=== PATIENT | female | born 1940 | race Caucasian/White ===

== ENCOUNTER 2022-06-21 18:44 | Emergency (ER) | payer MEDICARE, OTHER ==
[~2022-06-21] VITALS: Ht 149.9 cm; Wt 90.7 kg
--- NOTE | 2022-06-21 19:00 | NUR ---
AMORA RA78 From Home "Been coughing x1wk or so. NOT getting better". PLACED IN BED, AAOX4, ABLE TO AMBULATE WITH ASSISTANCE, BREATHING UNLABORED SATURATING AT 97%RA.
--- NOTE | 2022-06-21 19:34 | NUR ---
SWAB FOR COVID19, RAPID INFLUENZA AND RSV SENT TO LAB
[2022-06-21] MEDS ORDERED: methylPREDNISolone SOD SUCC 125 MG/2ML VIAL IV ONE (20:30)
[2022-06-21] MEDS ORDERED: IPRATROPIUM NEB FS 0.5 MG/2.5 ML AMPUL.NEB NEB ONE (20:30)
[2022-06-21] MEDS ORDERED: ALBUTEROL FS 2.5 MG/3 ML VIAL.NEB CONTNEB ONE (20:30)
[2022-06-21 20:45] LABS: BASOPHILS % (AUTO) 0.7 % (0.0-2.0); EOSINOPHILS % (AUTO) 7.7 % (0.0-6.0); HEMATOCRIT 40 % (33-45); LYMPHOCYTES # (AUTO) 2.3 K/uL (0.8-4.8); LYMPHOCYTES % (AUTO) 34.4 % (20.0-44.0); MEAN CORPUSCULAR HGB CONC 33 g/dl (31.0-36.0); MEAN CORPUSCULAR VOLUME 96 fL (82-100); MONOCYTES % (AUTO) 14.3 % (2.0-12.0); NEUTROPHILS # (AUTO) 2.9 K/uL (1.8-8.9); NEUTROPHILS % (AUTO) 42.9 % (43.0-81.0); PLATELET COUNT (AUTO) 272 K/uL (150-450); RED BLOOD CELL COUNT(AUTO) 4.16 MIL/uL (4.0-5.2); WHITE BLOOD COUNT (AUTO) 6.8 K/uL (4.3-11.0)
[2022-06-21 21:01] LABS: CALCIUM, SERUM 10.4 mg/dL (8.5-10.1); CARBON DIOXIDE 25 mmol/L (21-32); CHLORIDE 101 mmol/L (98-107); CREATININE 1.2 mg/dL (0.6-1.3); GLUCOSE 109 mg/dL (74-106); POTASSIUM 4.1 mmol/L (3.5-5.1); SODIUM SERUM 133 mmol/L (136-145); UREA NITROGEN, BLOOD 26 mg/dL (7-18)
[2022-06-21 21:12] LABS: ALANINE AMINOTRANSFERASE 22 U/L (12-78); ALBUMIN 3.5 g/dL (3.4-5.0); ALKALINE PHOSPHATASE 108 U/L (46-116); ASPARTATE AMINOTRANSFERASE 25 U/L (15-37); BILIRUBIN,DIRECT 0.1 mg/dL (0.0-0.2); BILIRUBIN,TOTAL 0.3 mg/dL (0.2-1.0); TOTAL PROTEIN, SERUM 6.9 g/dL (6.4-8.2)
[2022-06-21] MEDS ORDERED: methylPREDNISolone SOD SUCC 125 MG/2ML VIAL ONE (21:17)
[2022-06-21] MEDS ORDERED: IPRATROPIUM NEB FS 0.5 MG/2.5 ML AMPUL.NEB ONE (21:32)
[2022-06-21] MEDS ORDERED: ALBUTEROL FS 2.5 MG/3 ML VIAL.NEB ONE (21:32)
[2022-06-21] MEDS ORDERED: BENZ-13 PO (21:53)
[2022-06-21] MEDS ORDERED: PRED20TA PO (21:53)
[2022-06-21] MEDS ORDERED: ALBU18HF2 INH (21:53)
--- NOTE | 2022-06-21 23:06 | NUR ---
IV removed. Catheter intact and site benign. Pressure and 4x4 applied to site. No bleeding noted.Patient discharged to home in stable condition. Written and verbal after care instructions given. Patient verbalizes understanding of instruction.
[2022-06-21 23:07] VITALS: BP 135/75
== END 2022-06-21 23:06 | disposition home or self-care (01) ==
LOC: ER 18:46
DX: J20.9 Acute bronchitis, unspecified (principal); Z20.822 Contact with and (suspected) exposure to COVID-19; R00.1 Bradycardia, unspecified; I10 Essential (primary) hypertension
CPT/HCPCS: 99285; 96374; 71045; 87426; 93005; 87804; 85025; 80048; 87040 ×2; 80076; 36415; 87420; 84484; 83880; 94644; J2930; C9803

== ENCOUNTER 2022-10-19 20:38 | Inpatient (IN) | payer MEDICARE, OTHER ==
[~2022-10-19] VITALS: Ht 149.9 cm; Wt 90.3 kg
[~2022-10-19 20:38] MED LIST: ALBU18HF2 INH; BENZ-13 PO; PRED20TA PO
[2022-10-19] MEDS ORDERED: ONDANSETRON HCL/PF 4 MG/2 ML VIAL IVP ONE (21:00)
[2022-10-19] MEDS ORDERED: IV NS 0.9% 1,000 ML BAG IV ONE (21:00)
[2022-10-19] MEDS ORDERED: ONDANSETRON HCL/PF 4 MG/2 ML VIAL ONE (21:04)
--- NOTE | 2022-10-19 21:05 | NUR ---
[id number] FROM LONGTERM, CC OF HEADACHE AND NAUSEA STARTED TODAY, DIARRHEA SINCE YESTERDAY.
[2022-10-19 21:45] LABS: BASOPHILS # (AUTO) 0.1 K/uL (0.0-0.2); BASOPHILS % (AUTO) 1.2 % (0.0-2.0); EOSINOPHILS % (AUTO) 2.3 % (0.0-6.0); HEMATOCRIT 43 % (33-45); HEMOGLOBIN 14.2 g/dL (11.5-14.8); LYMPHOCYTES # (AUTO) 3.7 K/uL (0.8-4.8); LYMPHOCYTES % (AUTO) 36.3 % (20.0-44.0); MEAN CORPUSCULAR HGB CONC 33 g/dl (31.0-36.0); MEAN CORPUSCULAR VOLUME 95 fL (82-100); MONOCYTES # (AUTO) 0.8 K/uL (0.1-1.30); MONOCYTES % (AUTO) 7.8 % (2.0-12.0); NEUTROPHILS # (AUTO) 5.3 K/uL (1.8-8.9); NEUTROPHILS % (AUTO) 52.4 % (43.0-81.0); PLATELET COUNT (AUTO) 411 K/uL (150-450); RED BLOOD CELL COUNT(AUTO) 4.51 MIL/uL (4.0-5.2); WHITE BLOOD COUNT (AUTO) 10.1 K/uL (4.3-11.0)
--- NOTE | 2022-10-19 21:45 | NUR ---
BROUGHT TO CT DEPT
--- NOTE | 2022-10-19 21:45 | NUR ---
URINE SPECIMEN SENT TO LAB
--- NOTE | 2022-10-19 21:45 | NUR ---
left for ct
--- NOTE | 2022-10-19 21:57 | NUR ---
back from CT
[2022-10-19 22:20] LABS: BILIRUBIN,URINE NEGATIVE (NEGATIVE); COLOR,URINE YELLOW (YELLOW); LEUKOCYTE ESTERASE ,URINE 1+ (NEGATIVE); NITRITE, URINE NEGATIVE (NEGATIVE); PROTEIN,URINE NEGATIVE (NEGATIVE); UGLUCOSE NEGATIVE (NEGATIVE); UROBILINOGEN,URINE 0.2 EU/dL (0.2)
[2022-10-19 22:24] LABS: BACTERIA,URINE 2+ /HPF (None Seen); RBC,URINE 0-2 /HPF (0-2); SQUAMOUS EPITHELIAL CELL,UR 21-50 /HPF (None Seen)
[2022-10-19 23:05] LABS: ALANINE AMINOTRANSFERASE 32 U/L (12-78); ALBUMIN 3.7 g/dL (3.4-5.0); ALKALINE PHOSPHATASE 102 U/L (46-116); ASPARTATE AMINOTRANSFERASE 32 U/L (15-37); BILIRUBIN,DIRECT 0.1 mg/dL (0.0-0.2); BILIRUBIN,TOTAL 0.7 mg/dL (0.2-1.0); CALCIUM, SERUM 11.1 mg/dL (8.5-10.1); CARBON DIOXIDE 22 mmol/L (21-32); CHLORIDE 83 mmol/L (98-107); CREATININE 1.6 mg/dL (0.6-1.3); GLUCOSE 106 mg/dL (74-106); LIPASE 111 U/L (73-393); POTASSIUM 3.9 mmol/L (3.5-5.1); TOTAL PROTEIN, SERUM 7.5 g/dL (6.4-8.2); UREA NITROGEN, BLOOD 40 mg/dL (7-18)
[2022-10-19 23:14] LABS: SODIUM SERUM 114 mmol/L (136-145)
--- NOTE | 2022-10-19 23:15 | NUR ---
received critical lab result sodium- 114, aware.
--- NOTE | 2022-10-19 23:58 | NUR ---
started iv line at right hand #24
[2022-10-20] MEDS ORDERED: ONDANSETRON HCL/PF 4 MG/2 ML VIAL ONE (00:04)
[2022-10-20] MEDS ORDERED: CEFTRIAXONE 1 G in IV D5W 50 ML IV ONE (00:30)
[2022-10-20] MEDS ORDERED: MAGNESIUM HYDROXIDE 30 ML UDC PO PRN (00:30)
[2022-10-20] MEDS ORDERED: Z GUARD REMEDY 4 OZ OINT TP PRN (00:30)
[2022-10-20] MEDS ORDERED: ZOLPIDEM TARTRATE 5 MG TABLET PO PRN (00:30)
[2022-10-20] MEDS ORDERED: IV NS 0.9% 1,000 ML IV PRN ×2 (00:30)
[2022-10-20] MEDS ORDERED: MAG HYDROX/AL HYDROX/SIMETH 30 ML UDC PO PRN (00:30)
[2022-10-20] MEDS ORDERED: CEFTRIAXONE 1GM BAG (ER ONLY) 50 ML IV ONE (02:47)
--- NOTE | 2022-10-20 03:02 | NUR ---
REPORT GIVEN TO [facility] BONILLA.
--- NOTE | 2022-10-20 03:30 | NUR ---
ASSEMBLER DC FIELD YOKE NOTES: REPORT RECEIVED FROM SECTION LEADER AND MACHINE SETTERYOGESH HERZOG. PT TRANSFERRED TO [facility] FROM ER VIA [facility]. PLACED IN ROOM 120 BED 1. PT AWAKE, ALERT/ORIENTED X3-4 AND VERBALLY RESPONSIVE. ON ROOM AIR AND PT TOLERATED WELL. O2 SAT 100%. IV ACCESS ON LT HAND#24 G INTACT AND PATENT. NO S/S OF INFILTRATIONS. NO C/O PAIN OR DISCOMFORT. NO ACUTE DISTRESS. NO C/O NAUSEA/VOMITING. APPLIED PUREWICK. ASSESSED WHOLE BODY. NO OPEN SKIN OR SKIN DISCOLORATIONS. ALL SAFETY MEASURES IN PLACE. SIDE RAILS UP X3, BED IN LOWEST POSITION AND LOCKED. PLACE CALL LIGHT WITH IN REACH. WILL CONTINUE TO MONITOR
--- NOTE | 2022-10-20 03:35 | NUR ---
PATIENT TRANSFERRED TO ROOM 120 VIA ACLS PROTOCOL
[2022-10-20 04:00] VITALS: BP 108/54
--- NOTE | 2022-10-20 06:44 | NUR ---
RN CLOSING NOTES: NO SIGNIFICANT CHANGES AT THIS MOMENT. IV HYDRATION NS AT 125CC/HR. WILL ENDORSE TO MORNING SHIFT NURSE.
--- NOTE | 2022-10-20 07:10 | NUR ---
RN OPENING NOTE PATIENT AWAKE, ALERT/ORIENTED X3-4 AND VERBALLY RESPONSIVE. ON ROOM AIR TOLERATED WELL, O2 SAT 100%. IV ACCESS ON LT HAND#24 G INTACT AND PATENT. NO S/S OF INFILTRATIONS. NO C/O PAIN OR DISCOMFORT. NO ACUTE DISTRESS. NO C/O NAUSEA/VOMITING. ALL SAFETY MEASURES IN PLACE. SIDE RAILS UP X3, BED IN LOWEST POSITION AND LOCKED. PLACE CALL LIGHT WITH IN REACH. WILL CONTINUE TO MONITOR.
[2022-10-20] MEDS: PANTOPRAZOLE 40 MG TABLET.DR PO SCH (07:50)
[2022-10-20 08:00] VITALS: BP 92/42
[2022-10-20] MEDS: HEPARIN SODIUM, PORCINE 5000 UNITS/1 ML VIAL SQ SCH ×2 (08:18→21:00)
[2022-10-20] MEDS ORDERED: IV NS 0.9% 1,000 ML IV SCH (10:00)
[2022-10-20 12:00] VITALS: BP 128/52
[2022-10-20] MEDS: ACETAMINOPHEN 325 MG TABLET PO PRN ×3 (12:51→23:22)
[2022-10-20 16:00] VITALS: BP 97/44
--- NOTE | 2022-10-20 19:00 | NUR ---
RN CLOSING NOTE PATIENT AWAKE, ALERT/ORIENTED X3-4 AND VERBALLY RESPONSIVE. ON ROOM AIR TOLERATED WELL, O2 SAT 100%. IV ACCESS ON LT HAND#24 G INTACT AND PATENT. NO S/S OF INFILTRATION. ALL SAFETY MEASURES IN PLACE. SIDE RAILS UP X3, BED IN LOWEST POSITION AND LOCKED. PLACE CALL LIGHT WITH IN REACH. WILL ENDORSE TO THE UPCOMING NURSE FOR NELDA.
--- NOTE | 2022-10-20 19:45 | NUR ---
RN OPENING NOTES: RECEIVED PT IN BED, AWAKE, ALERT/ORIENTED X3-4 AND VERBALLY RESPONSIVE. ON ROOM AIR AND PT TOLERATED WELL. IV ACCESS ON LT HAND#24 G INTACT AND PATENT. NO S/S OF INFILTRATIONS. NS RUNNING AT 100CC/HR. NO C/O PAIN OR DISCOMFORT. NO ACUTE DISTRESS. NO C/O NAUSEA/VOMITING. PUREWICK IN PLACE. ALL SAFETY MEASURES IN PLACE. SIDE RAILS UP X3, BED IN LOWEST POSITION AND LOCKED. PLACE CALL LIGHT WITH IN REACH. WILL CONTINUE TO MONITOR
[2022-10-20 20:00] VITALS: BP 122/62
[2022-10-20] MEDS: IV NS 0.9% 1,000 ML IV PRN (23:21)
--- NOTE | 2022-10-20 23:30 | NUR ---
RN NOTES: PT C/O HEADACHE, TYLENOL 325 MG 2 TABS GIVEN AND PT TOLERATED WELL. WILL CONTINUE TO MONITOR
[2022-10-21] VITALS: BP 143/63
[2022-10-21] MEDS: CEFTRIAXONE 1 G in IV D5W 50 ML IV SCH (00:20)
[2022-10-21 04:00] VITALS: BP 131/68
--- NOTE | 2022-10-21 06:30 | NUR ---
RN CLOSING NOTES: PT IN BED, AWAKE, ALERT/ORIENTED X3-4 AND VERBALLY RESPONSIVE. ON ROOM AIR AND PT TOLERATED WELL. O2 SAT 97%. IV ACCESS ON LT HAND#24 G INTACT AND PATENT. NO S/S OF INFILTRATIONS. NS RUNNING AT 100CC/HR. NO C/O PAIN OR DISCOMFORT. NO ACUTE DISTRESS. NO C/O NAUSEA/VOMITING. PUREWICK IN PLACE. DRAINING 800 OUTPUT. ALL DUE MEDS GIVEN ORDERED. ALL SAFETY MEASURES IN PLACE. SIDE RAILS UP X3, BED IN LOWEST POSITION AND LOCKED. PLACE CALL LIGHT WITH IN REACH. WILL ENDORSE TO MORNING SHIFT NURSE.
[2022-10-21 07:29] LABS: BASOPHILS # (AUTO) 0.1 K/uL (0.0-0.2); BASOPHILS % (AUTO) 1.9 % (0.0-2.0); EOSINOPHILS % (AUTO) 4.9 % (0.0-6.0); HEMATOCRIT 39 % (33-45); HEMOGLOBIN 12.6 g/dL (11.5-14.8); LYMPHOCYTES # (AUTO) 2.3 K/uL (0.8-4.8); LYMPHOCYTES % (AUTO) 42.8 % (20.0-44.0); MEAN CORPUSCULAR HGB CONC 33 g/dl (31.0-36.0); MEAN CORPUSCULAR VOLUME 99 fL (82-100); MONOCYTES # (AUTO) 0.4 K/uL (0.1-1.30); MONOCYTES % (AUTO) 8.2 % (2.0-12.0); NEUTROPHILS # (AUTO) 2.3 K/uL (1.8-8.9); NEUTROPHILS % (AUTO) 42.2 % (43.0-81.0); PLATELET COUNT (AUTO) 318 K/uL (150-450); RED BLOOD CELL COUNT(AUTO) 3.95 MIL/uL (4.0-5.2); WHITE BLOOD COUNT (AUTO) 5.4 K/uL (4.3-11.0)
--- NOTE | 2022-10-21 07:30 | NUR ---
LINE WORKER OPENING NOTES: RECEIVED PT IN BED, AWAKE, ALERT/ORIENTED X3-4 AND VERBALLY RESPONSIVE. ON ROOM AIR AND PT TOLERATED WELL. IV ACCESS ON LT HAND#24 G INTACT AND PATENT. NO S/S OF INFILTRATIONS. NS RUNNING AT 100CC/HR. NO C/O PAIN OR DISCOMFORT. NO ACUTE DISTRESS. NO C/O NAUSEA/VOMITING AT THIS TIME. NO DIARRHEA. PUREWICK IN PLACE. DRAINING CLEAR YELLOW URINE. ON TELE MONITOR SR. ALL SAFETY MEASURES IN PLACE. SIDE RAILS UP X3, BED IN LOWEST POSITION AND LOCKED. PLACE CALL LIGHT WITH IN REACH. PLAN OF CARE CONTINUE.
[2022-10-21 07:42] LABS: CALCIUM, SERUM 9.4 mg/dL (8.5-10.1); CARBON DIOXIDE 20 mmol/L (21-32); CHLORIDE 109 mmol/L (98-107); GLUCOSE 153 mg/dL (74-106); MAGNESIUM 1.8 mg/dL (1.8-2.4); POTASSIUM 3.5 mmol/L (3.5-5.1); SODIUM SERUM 142 mmol/L (136-145); UREA NITROGEN, BLOOD 18 mg/dL (7-18)
[2022-10-21 08:00] VITALS: BP 138/67
[2022-10-21] MEDS: ONDANSETRON HCL/PF 4 MG/2 ML VIAL IVP PRN ×3 (08:17→23:31)
[2022-10-21] MEDS: PANTOPRAZOLE 40 MG TABLET.DR PO SCH (08:17)
[2022-10-21] MEDS: HEPARIN SODIUM, PORCINE 5000 UNITS/1 ML VIAL SQ SCH ×2 (08:18→20:36)
[2022-10-21] MEDS: IV NS 0.9% 1,000 ML IV PRN ×2 (09:33→20:37)
[2022-10-21] MEDS ORDERED: NEUTRA PHOS 1 POWD.PACKET PO ONE (11:00)
--- NOTE | 2022-10-21 11:06 | NUR ---
RECEIVED NEW ORDER FROM DR. EDWARD MOTRIN 600MG Q6HR PRN, NOTED AND CARRIED OUT.
[2022-10-21] MEDS: IBUPROFEN 600 MG TABLET PO PRN (11:36)
[2022-10-21] MEDS ORDERED: CRAN425C6 PO (12:02)
[2022-10-21] MEDS ORDERED: CARV3.122 PO (12:02)
[2022-10-21] MEDS ORDERED: SENN-261 PO (12:02)
[2022-10-21] MEDS ORDERED: LORA10TA7 PO (12:02)
[2022-10-21] MEDS ORDERED: FLUO40CA49 PO (12:02)
[2022-10-21] MEDS ORDERED: LISI10TA29 PO (12:02)
[2022-10-21] MEDS ORDERED: BUSP10TA35 PO (12:02)
[2022-10-21] MEDS ORDERED: PREG-59 PO (12:02)
[2022-10-21] MEDS ORDERED: BEPO10DR EACHEYE (12:02)
[2022-10-21] MEDS ORDERED: ESTR0.5T PO (12:02)
[2022-10-21] MEDS ORDERED: BUME1TAB8 PO (12:02)
[2022-10-21] MEDS ORDERED: LEVO-104 PO (12:02)
[2022-10-21] MEDS ORDERED: POLY17PO4 PO (12:02)
[2022-10-21] MEDS ORDERED: PANT40TA49 PO (12:02)
[2022-10-21] MEDS ORDERED: CHOL100043 PO (12:02)
[2022-10-21] MEDS ORDERED: AMLO-212 PO (12:02)
[2022-10-21 16:10] VITALS: BP 141/60
[2022-10-21] MEDS ORDERED: SENNOSIDES 8.6 MG TABLET PO PRN (18:00)
[2022-10-21] MEDS: LORATADINE 10 MG TABLET PO SCH (18:26)
[2022-10-21] MEDS: busPIRone 5 MG TABLET PO SCH (18:26)
--- NOTE | 2022-10-21 18:35 | NUR ---
HOOKER OPERATOR CLOSING NOTES: PT IN BED, AWAKE, ALERT/ORIENTED X3-4 AND VERBALLY RESPONSIVE. ON ROOM AIR AND PT TOLERATED WELL. IV ACCESS ON RIGHT HAND AND LT HAND#22 G INTACT AND PATENT, FLUSHES WELL, NO S/S OF INFILTRATIONS. NS RUNNING AT 100CC/HR. NO C/O PAIN OR DISCOMFORT. NO ACUTE DISTRESS. NO C/O NAUSEA/VOMITING AT THIS TIME. NO DIARRHEA. PUREWICK IN PLACE. DRAINING CLEAR YELLOW URINE. ALL SAFETY MEASURES IN PLACE. SIDE RAILS UP X3, BED IN LOWEST POSITION AND LOCKED. PLACE CALL LIGHT WITH IN REACH. WILL ENDORSE TO NIGHT NURSE FOR NELDA.
[2022-10-21 20:00] VITALS: BP 126/60
--- NOTE | 2022-10-21 23:25 | NUR ---
MS RN OPENING NOTE PT RECEIVED IN BED, AWAKE, A/O X4, CALM, COOPERATIVE. PT ON ROOM AIR WITH CURRENT O2SAT OF 98%; NO S/S OF RESP DISTRESS, NO SOB, NON-LABORED AND EQUAL BREATHING. VITAL SIGNS STABLE; WILL MONITOR NEEDED. PUREWICK IN PLACE, DRAINING CLEAR AND YELLOW URINE. IV ACCESS ON LEFT HAND 22G, INTACT AND PATENT, FLUSHES EASILY WITH NO RESISTANCE; NS INFUSING AT 100 ML/HR. BED IN LOWEST POSITION, CALL LIGHT WITHIN REACH, SIDE RAILS UP X2. WILL CONTINUE TO MONITOR THROUGHOUT THE NIGHT.
--- NOTE | 2022-10-21 23:31 | NUR ---
RN NOTE PT REPORTS OF FEELING NAUSEOUS; NO VOMITING PRESENT. PT ADMINISTERED ZOFRAN 4 MG. WILL MONITOR FOR EFFECTIVENESS.
[2022-10-22] MEDS: CEFTRIAXONE 1 G in IV D5W 50 ML IV SCH (01:13)
[2022-10-22 04:00] VITALS: BP 144/89
[2022-10-22] MEDS: IV NS 0.9% 1,000 ML IV PRN (05:46)
[2022-10-22] MEDS: ONDANSETRON HCL/PF 4 MG/2 ML VIAL IVP PRN ×2 (05:59→15:03)
--- NOTE | 2022-10-22 06:54 | NUR ---
MS RN CLOSING NOTE PT REMAINS IN BED, AWAKE, A/O X4, SEEMS A BIT ANXIOUS AT TIMES. CONTINUES TO BE ON ROOM AIR WITH O2SAT RANGING FROM 98%-99% THROUGHOUT THE NIGHT WITH NO S/S OF RESP DISTRESS. VSS THROUGHOUT THE NIGHT WITH NO SIGNIFICANT CHANGES. PUREWICK IN PLACE, DRAINING CLEAR AND YELLOW URINE. IV ACCESS ON RIGHT HAND 24G AND LEFT HAND 22G, INTACT AND PATENT, NS INFUSING AT 100 ML/HR. ALL DUE MEDS ADMINISTERED DURING THE NIGHT. BED IN LOWEST POSITION, CALL LIGHT WITHIN REACH, SIDE RAILS UP X2. WILL ENDORSE TO DAYSHIFT NURSE TO CONTINUE CARE.
--- NOTE | 2022-10-22 07:40 | NUR ---
MS RN OPENING NOTES: RECEIVED PT IN BED, AWAKE, ALERT/ORIENTED X3-4 AND VERBALLY RESPONSIVE. ON ROOM AIR AND PT TOLERATED WELL. IV ACCESS ON RIGHT HAND AND LT HAND#22 G INTACT AND PATENT, FLUSHES WELL, NO S/S OF INFILTRATIONS. NS RUNNING AT 100CC/HR. NO C/O PAIN OR DISCOMFORT. NO ACUTE DISTRESS. NO C/O NAUSEA/VOMITING AT THIS TIME. NO DIARRHEA. PUREWICK IN PLACE. DRAINING CLEAR YELLOW URINE. ALL SAFETY MEASURES IN PLACE. SIDE RAILS UP X3, BED IN LOWEST POSITION AND LOCKED. PLACE CALL LIGHT WITH IN REACH. PLAN OF CARE CONTINUE.
--- NOTE | 2022-10-22 07:40 | NUR ---
MULTIMEDIA COORDINATOR CLOSING NOTES: PT IN BED, AWAKE, ALERT/ORIENTED X3-4 AND VERBALLY RESPONSIVE. ON ROOM AIR AND PT TOLERATED WELL. IV ACCESS ON RIGHT HAND AND LT HAND#22 G INTACT AND PATENT, FLUSHES WELL, NO S/S OF INFILTRATIONS. NS RUNNING AT 100CC/HR. NO C/O PAIN OR DISCOMFORT. NO ACUTE DISTRESS. NO C/O NAUSEA/VOMITING AT THIS TIME. NO DIARRHEA. PUREWICK IN PLACE. DRAINING CLEAR YELLOW URINE. ALL SAFETY MEASURES IN PLACE. SIDE RAILS UP X3, BED IN LOWEST POSITION AND LOCKED. PLACE CALL LIGHT WITH IN REACH. WILL ENDORSE TO NIGHT NURSE FOR NELDA. Addendum: 10/22/22 at 0740 by FLORI MURPHY RN WRONG ENTRY
[2022-10-22 08:00] VITALS: BP 144/65
[2022-10-22] MEDS: CHOLECALCIFEROL 1,000 UNIT TABLET (VIT D3) PO SCH (08:45)
[2022-10-22] MEDS: busPIRone 5 MG TABLET PO SCH ×2 (08:46→16:29)
[2022-10-22] MEDS: PANTOPRAZOLE 40 MG TABLET.DR PO SCH (08:46)
[2022-10-22] MEDS: LEVOTHYROXINE SODIUM 100 MCG TABLET PO SCH (08:46)
[2022-10-22] MEDS: BUMETANIDE (1 MG) 1 MG TABLET PO SCH (08:46)
[2022-10-22] MEDS: FLUOXETINE HCL 20 MG CAPSULE PO SCH (08:46)
[2022-10-22] MEDS: PREGABALIN 100 MG CAPSULE PO SCH ×2 (08:46→16:29)
[2022-10-22] MEDS: LORATADINE 10 MG TABLET PO SCH (08:46)
[2022-10-22] MEDS: ESTRADIOL 1 MG TABLET PO SCH (08:47)
[2022-10-22] MEDS: CARVEDILOL 3.125 MG TABLET PO SCH ×2 (08:48→16:29)
[2022-10-22] MEDS: LISINOPRIL (10MG) 10 MG TABLET PO SCH (08:48)
[2022-10-22] MEDS: AMLODIPINE BESYLATE 5 MG TABLET PO SCH (08:48)
[2022-10-22] MEDS: HEPARIN SODIUM, PORCINE 5000 UNITS/1 ML VIAL SQ SCH ×2 (08:49→21:16)
[2022-10-22] MEDS: POLYETHYLENE GLYCOL 3350 17 GM POWD.PACK PO SCH (08:50)
[2022-10-22] MEDS ORDERED: Medication Not On Formulary EA (Cranberry Extract (Cranberry) 425 MG) PO SCH (09:00)
[2022-10-22] MEDS ORDERED: LORATADINE 10 MG TABLET PO SCH (09:00)
[2022-10-22] MEDS ORDERED: BEPOTASTINE BESILATE EACHEYE SCH (09:00)
[2022-10-22] MEDS ORDERED: busPIRone 5 MG TABLET PO SCH (09:00)
--- NOTE | 2022-10-22 09:00 | NUR ---
PATIENT REFUSED MIRALAX. EXPLAINED TO THE PATIENT OF THE IMPORTANCE OF TAKING THE MIRALAX X3, PATIENT STILL REFUSED.
[2022-10-22] MEDS: IV NS 0.9% 1,000 ML IV SCH ×2 (10:44→19:28)
[2022-10-22 10:47] LABS: CALCIUM, SERUM 9.3 mg/dL (8.5-10.1); CARBON DIOXIDE 20 mmol/L (21-32); CHLORIDE 111 mmol/L (98-107); CREATININE 0.8 mg/dL (0.6-1.3); GLUCOSE 106 mg/dL (74-106); POTASSIUM 3.7 mmol/L (3.5-5.1); SODIUM SERUM 145 mmol/L (136-145); UREA NITROGEN, BLOOD 10 mg/dL (7-18)
[2022-10-22 11:09] LABS: BASOPHILS # (AUTO) 0.1 K/uL (0.0-0.2); BASOPHILS % (AUTO) 1.2 % (0.0-2.0); EOSINOPHILS % (AUTO) 5.8 % (0.0-6.0); HEMATOCRIT 37 % (33-45); HEMOGLOBIN 12.2 g/dL (11.5-14.8); LYMPHOCYTES # (AUTO) 2.7 K/uL (0.8-4.8); LYMPHOCYTES % (AUTO) 45.2 % (20.0-44.0); MEAN CORPUSCULAR HGB CONC 33 g/dl (31.0-36.0); MEAN CORPUSCULAR VOLUME 96 fL (82-100); MONOCYTES # (AUTO) 0.5 K/uL (0.1-1.30); MONOCYTES % (AUTO) 8.6 % (2.0-12.0); NEUTROPHILS # (AUTO) 2.3 K/uL (1.8-8.9); NEUTROPHILS % (AUTO) 39.2 % (43.0-81.0); PLATELET COUNT (AUTO) 288 K/uL (150-450); RED BLOOD CELL COUNT(AUTO) 3.85 MIL/uL (4.0-5.2); WHITE BLOOD COUNT (AUTO) 5.9 K/uL (4.3-11.0)
[2022-10-22] MEDS: IBUPROFEN 600 MG TABLET PO PRN (13:38)
[2022-10-22 16:00] VITALS: BP 119/63
--- NOTE | 2022-10-22 18:18 | NUR ---
MS RN CLOSING NOTES: PT IN BED, AWAKE, ALERT/ORIENTED X3-4 AND VERBALLY RESPONSIVE. ON ROOM AIR AND PT TOLERATED WELL. IV ACCESS ON LT HAND#22 G INTACT AND PATENT, FLUSHES WELL, NO S/S OF INFILTRATIONS. NS RUNNING AT 75 CC/HR. NO C/O PAIN OR DISCOMFORT. NO ACUTE DISTRESS. VOMITING AT THIS TIME. NO DIARRHEA. PUREWICK IN PLACE. DRAINING CLEAR YELLOW URINE. ALL SAFETY MEASURES IN PLACE. SIDE RAILS UP X3, BED IN LOWEST POSITION AND LOCKED. PLACE CALL LIGHT WITH IN REACH. WILL ENDORSE TO NIGHT NURSE FOR NELDA.
--- NOTE | 2022-10-22 19:40 | NUR ---
MS RN OPENING NOTE PATIENT AWAKE IN BED, ALERT/ORIENTED X 3, PT ABLE TO MAKE NEEDS KNOWN. PATIENT STABLE ON RA, NO S/S OF DISTRESS OR SOB NOTED, BREATHING EVEN AND UNLABORED. IV ACCESS ON LEFT HAND #22G INTACT AND INFUSING NS @ 75 ML/HR. PUREWICK IN PLACE AND DRAINING YELLOW URINE. SAFETY MEASURES IN PLACE: CALL LIGHT WITHIN REACH, SIDE RAILS UP X 2, BED LOCKED IN LOWEST POSITION, HOB ELEVATED, BED ALARM ON. WILL CONTINUE TO MONITOR PATIENT
[2022-10-22 20:00] VITALS: BP 109/42
[2022-10-23] MEDS: CEFTRIAXONE 1 G in IV D5W 50 ML IV SCH (00:59)
[2022-10-23 04:30] VITALS: BP 138/69
--- NOTE | 2022-10-23 07:38 | NUR ---
MED SURGE OPEN NOTE: ALERT X3. UNLABORED BREATHING. LEFT HAND IV G22 WITH NS IVF OF 75 ML /HR. IV SITE PATENT, NO S/S OF COMPLICATIONS. DENIES PAIN OR DISCOMFORT. ON PUREWICKKWITH YELLOW URINE. HOB ELEVATED. BILATERAL HALF SIDE RAILS UP X2. BED IN LOW POSITION, LOCKED, EXIT ALARM ON. CALL LIGHT IN REACH.
--- NOTE | 2022-10-23 07:44 | NUR ---
MS RN CLOSING NOTE PATIENT AWAKE IN BED, ALERT/ORIENTED X 3, PT ABLE TO MAKE NEEDS KNOWN. PATIENT STABLE ON RA, NO S/S OF DISTRESS OR SOB NOTED, BREATHING EVEN AND UNLABORED. IV ACCESS ON LEFT HAND #22G INTACT AND INFUSING NS @ 75 ML/HR. PUREWICK IN PLACE AND DRAINING YELLOW URINE, 1900 ML OUTPUT. NO SIGNIFICANT CHANGES THIS SHIFT, PT SLEPT WELL THROUGH THE NIGHT, MEDICATIONS GIVEN ORDERED. SAFETY MEASURES IN PLACE: CALL LIGHT WITHIN REACH, SIDE RAILS UP X 2, BED LOCKED IN LOWEST POSITION, HOB ELEVATED, BED ALARM ON. ENDORSED TO DAYSHIFT RN FOR CONTINUITY OF CARE
[2022-10-23 07:45] LABS: BASOPHILS # (AUTO) 0.1 K/uL (0.0-0.2); BASOPHILS % (AUTO) 1.1 % (0.0-2.0); EOSINOPHILS % (AUTO) 8.1 % (0.0-6.0); HEMATOCRIT 39 % (33-45); HEMOGLOBIN 12.9 g/dL (11.5-14.8); LYMPHOCYTES # (AUTO) 1.8 K/uL (0.8-4.8); LYMPHOCYTES % (AUTO) 27.1 % (20.0-44.0); MEAN CORPUSCULAR HGB CONC 33 g/dl (31.0-36.0); MEAN CORPUSCULAR VOLUME 96 fL (82-100); MONOCYTES # (AUTO) 0.6 K/uL (0.1-1.30); MONOCYTES % (AUTO) 8.7 % (2.0-12.0); NEUTROPHILS # (AUTO) 3.6 K/uL (1.8-8.9); PLATELET COUNT (AUTO) 285 K/uL (150-450); RED BLOOD CELL COUNT(AUTO) 4.05 MIL/uL (4.0-5.2); WHITE BLOOD COUNT (AUTO) 6.6 K/uL (4.3-11.0)
[2022-10-23 07:55] LABS: CALCIUM, SERUM 8.9 mg/dL (8.5-10.1); CREATININE 0.8 mg/dL (0.6-1.3); MAGNESIUM 1.5 mg/dL (1.8-2.4); PHOSPHORUS 2.4 mg/dL (2.5-4.9); POTASSIUM 3.5 mmol/L (3.5-5.1)
[2022-10-23 08:00] VITALS: BP 142/45
[2022-10-23] MEDS: PANTOPRAZOLE 40 MG TABLET.DR PO SCH (08:06)
[2022-10-23] MEDS: LEVOTHYROXINE SODIUM 100 MCG TABLET PO SCH (08:06)
[2022-10-23] MEDS: HEPARIN SODIUM, PORCINE 5000 UNITS/1 ML VIAL SQ SCH (08:17)
[2022-10-23] MEDS: BUMETANIDE (1 MG) 1 MG TABLET PO SCH (08:18)
[2022-10-23] MEDS: FLUOXETINE HCL 20 MG CAPSULE PO SCH (08:18)
[2022-10-23] MEDS: PREGABALIN 100 MG CAPSULE PO SCH ×2 (08:18→16:17)
[2022-10-23] MEDS: CHOLECALCIFEROL 1,000 UNIT TABLET (VIT D3) PO SCH (08:19)
[2022-10-23] MEDS: busPIRone 5 MG TABLET PO SCH ×2 (08:19→16:18)
[2022-10-23] MEDS: CARVEDILOL 3.125 MG TABLET PO SCH ×2 (08:19→16:17)
[2022-10-23] MEDS: LORATADINE 10 MG TABLET PO SCH (08:19)
[2022-10-23] MEDS: AMLODIPINE BESYLATE 5 MG TABLET PO SCH (08:20)
[2022-10-23] MEDS: LISINOPRIL (10MG) 10 MG TABLET PO SCH (08:20)
[2022-10-23] MEDS: POLYETHYLENE GLYCOL 3350 17 GM POWD.PACK PO SCH (08:21)
[2022-10-23] MEDS: ESTRADIOL 1 MG TABLET PO SCH (08:23)
[2022-10-23] MEDS ORDERED: NITR100C6 PO (09:17)
[2022-10-23] MEDS ORDERED: MAGNESIUM OXIDE 400 MG TABLET PO SCH (09:30)
[2022-10-23] MEDS: POTASSIUM PHOSPHATE MM 7.5 MMOL in IV NS 0.9% 100 ML IV SCH ×2 (09:47→12:44)
--- NOTE | 2022-10-23 15:00 | NUR ---
DR. EVANS (SANDY HOOK) INFORMED OF RESIDENT GETTING DISCHARGED TO [facility] . DR. EDWARD INFORMED NIECE WANTS TO SPEAK TO HIM AND NIECE PHONE NUMBER GIVEN TO .
--- NOTE | 2022-10-23 15:59 | NUR ---
SPOKE TO MARIBEL AT [facility] REPORT GIVEN. INFORMED PATIENT IS GETTING DISCHARGED TO [facility] ORDERED.
[2022-10-23 16:00] VITALS: BP 130/53
[2022-10-23 16:17] VITALS: BP 130/53
--- NOTE | 2022-10-23 17:45 | NUR ---
PATIENT IS ALERT AND ORIENTED TIMES 3. UNLABORED BREATHING AT ROOM AIR SATING AT 98%. IV ON LEFT HAND REMOVED. NO S/S OF COMPLICATIONS. DENIES PAIN OR DISCOMFORT. KEPT CLEAN AND DRY. DISCHARGE ORDERS PATIENT TEACHING PROVIDED TO PATIENT AND VERBALIZED UNDERSTANDING. AMBULANCE HERE, REPORT GIVEN. DISCHARGED VIA AMBULANCE ACCOMPANIED BY 2 CASINO DEALER ORDERED VIA [facility] TO [facility] ORDERED.
== END 2022-10-23 18:02 | DRG 640 ==
LOC: ER 20:41 → TELE-TD 10-20 02:30 → TELE1 10-20 16:10 → MEDSG1 10-21 10:14
PROVIDERS: ADMIT Internal Medicine; ATTEND Internal Medicine
DX: E87.1 Hypo-osmolality and hyponatremia (principal); N17.0 Acute kidney failure with tubular necrosis; E46 Unspecified protein-calorie malnutrition; N39.0 Urinary tract infection, site not specified; E86.1 Hypovolemia; E78.5 Hyperlipidemia, unspecified; E03.9 Hypothyroidism, unspecified; I10 Essential (primary) hypertension; B96.89 Other specified bacterial agents as the cause of diseases classified elsewhere; E66.01 Morbid (severe) obesity due to excess calories; Z68.39 Body mass index [BMI] 39.0-39.9, adult; Z66 Do not resuscitate; K82.8 Other specified diseases of gallbladder; K40.90 Unilateral inguinal hernia, without obstruction or gangrene, not specified as recurrent; K57.30 Diverticulosis of large intestine without perforation or abscess without bleeding; Z79.899 Other long term (current) drug therapy; Z20.822 Contact with and (suspected) exposure to COVID-19
CPT/HCPCS: 36415; 80048-TC; 80076-TC; 81001; 83690-TC; 83735-TC; 84100-TC; 84295-TC; 84484-TC; 85025-TC; 87086-TC; 97110-TC; 97116-TC; 97530-TC; A4223; C9803; G0378; J0696; J1644; J2405; J3490; J7030; J7060

== ENCOUNTER 2023-01-09 02:06 | Emergency (ER) | payer MEDICARE, OTHER ==
[~2023-01-09] VITALS: Ht 149.9 cm; Wt 90.7 kg
[~2023-01-09 02:06] MED LIST changes: -ALBU18HF2 INH; +AMLO-212 PO; -BENZ-13 PO; +BEPO10DR EACHEYE; +BUME1TAB8 PO; +BUSP10TA35 PO; +CARV3.122 PO; +CHOL100043 PO; +CRAN425C6 PO; +ESTR0.5T PO; +FLUO40CA49 PO; +LEVO-104 PO; +LISI10TA29 PO; +LORA10TA7 PO; +NITR100C6 PO; +PANT40TA49 PO; +POLY17PO4 PO; -PRED20TA PO; +PREG-59 PO; +SENN-261 PO
[2023-01-09 02:19] VITALS: TEMP 98.1
--- NOTE | 2023-01-09 02:20 | NUR ---
TRE 81 FROM [place] FROM [facility] X1 DAY. AFEBRILE.
[2023-01-09] MEDS ORDERED: FLUTICASONE PROPIONATE 16 GM BOTTLE NS SCH (02:30)
--- NOTE | 2023-01-09 02:33 | NUR ---
REED WORKER AT BEDSIDE
[2023-01-09] MEDS ORDERED: LORATADINE 10 MG TABLET PO SCH (03:00)
[2023-01-09] MEDS ORDERED: LORATADINE 10 MG TABLET ONE (03:02)
--- NOTE | 2023-01-09 03:13 | NUR ---
[facility] CALLED FOR BLS GOING BACK TO SNF PER DISPATCH ETA 45 MIN
--- NOTE | 2023-01-09 03:36 | NUR ---
GIVEN REPORT TO AYSE REYNA 260
--- NOTE | 2023-01-09 03:52 | NUR ---
REPORT GIVEN TO DILLON AT [facility]
--- NOTE | 2023-01-09 03:53 | NUR ---
PATIENT BEING TRANSPORTED BACK TO FACILITY VIA [facility] 260
[2023-01-09 03:55] VITALS: BP 100/59; O2SAT 100
== END 2023-01-09 04:07 ==
LOC: ER 02:15
DX: R09.81 Nasal congestion (principal); I10 Essential (primary) hypertension; F41.9 Anxiety disorder, unspecified; Z98.890 Other specified postprocedural states; Z79.899 Other long term (current) drug therapy
CPT/HCPCS: 71045-TC

== ENCOUNTER 2023-01-16 02:33 | Emergency (ER) | payer MEDICARE, OTHER ==
[~2023-01-16] VITALS: Ht 154.9 cm; Wt 93.0 kg
[2023-01-16] MEDS ORDERED: KETOROLAC TROMETHAMINE INJ 30 MG/ML VIAL IV ONE (03:00)
[2023-01-16] MEDS ORDERED: IV NS 0.9% 500 ML BAG IV ONE (03:00)
[2023-01-16] MEDS ORDERED: ONDANSETRON HCL/PF 4 MG/2 ML VIAL IV ONE (03:00)
[2023-01-16] MEDS ORDERED: ONDANSETRON HCL/PF 4 MG/2 ML VIAL ONE (03:12)
[2023-01-16] MEDS ORDERED: KETOROLAC TROMETHAMINE INJ 30 MG/ML VIAL ONE (03:13)
[2023-01-16 03:35] LABS: EOSINOPHILS # (AUTO) 0.9 K/uL (0.0-0.7); EOSINOPHILS % (AUTO) 10.5 % (0.0-6.0); HEMATOCRIT 46 % (33-45); HEMOGLOBIN 15.1 g/dL (11.5-14.8); LYMPHOCYTES # (AUTO) 0.4 K/uL (0.8-4.8); LYMPHOCYTES % (AUTO) 5.2 % (20.0-44.0); MEAN CORPUSCULAR HEMOGLOBIN 32 PG (26.0-33.0); MEAN CORPUSCULAR HGB CONC 33 g/dl (31.0-36.0); MEAN CORPUSCULAR VOLUME 98 fL (82-100); MONOCYTES # (AUTO) 0.1 K/uL (0.1-1.30); MONOCYTES % (AUTO) 1.5 % (2.0-12.0); NEUTROPHILS # (AUTO) 7.1 K/uL (1.8-8.9); NEUTROPHILS % (AUTO) 82.8 % (43.0-81.0); PLATELET COUNT (AUTO) 310 K/uL (150-450); RED BLOOD CELL COUNT(AUTO) 4.67 MIL/uL (4.0-5.2); RED CELL DISTRIBUTION WIDTH 16.5 % (11.5-15.0); WHITE BLOOD COUNT (AUTO) 8.6 K/uL (4.3-11.0)
[2023-01-16 03:41] LABS: CALCIUM, SERUM 11.4 mg/dL (8.5-10.1); CARBON DIOXIDE 21 mmol/L (21-32); CHLORIDE 97 mmol/L (98-107); CREATININE 2.1 mg/dL (0.6-1.3); GLUCOSE 122 mg/dL (74-106); POTASSIUM 5.4 mmol/L (3.5-5.1); SODIUM SERUM 130 mmol/L (136-145); UREA NITROGEN, BLOOD 53 mg/dL (7-18)
[2023-01-16 03:54] LABS: ALANINE AMINOTRANSFERASE 39 U/L (12-78); ALBUMIN 3.4 g/dL (3.4-5.0); ALKALINE PHOSPHATASE 103 U/L (46-116); ASPARTATE AMINOTRANSFERASE 45 U/L (15-37); BILIRUBIN,DIRECT 0.1 mg/dL (0.0-0.2); BILIRUBIN,TOTAL 0.6 mg/dL (0.2-1.0); LIPASE 117 U/L (73-393); TOTAL PROTEIN, SERUM 8.2 g/dL (6.4-8.2)
[2023-01-16 04:00] LABS: INR 1.03 (0.91-1.10); PARTIAL THROMBOPLASTIN TIME 32.5 SEC (24.3-34.3); PROTHROMBIN TIME 10.8 SECS (9.2-11.1)
[2023-01-16 04:04] LABS: APPEARANCE,URINE TURBID (CLEAR); BILIRUBIN,URINE NEGATIVE (NEGATIVE); COLOR,URINE DARK YELLOW (YELLOW); UGLUCOSE NEGATIVE (NEGATIVE)
[2023-01-16 04:05] LABS: BLOOD, URINE 2+ Ery/uL (NEGATIVE); KETONES,URINE NEGATIVE (NEGATIVE); LEUKOCYTE ESTERASE ,URINE 3+ (NEGATIVE); NITRITE, URINE POSITIVE (NEGATIVE); PROTEIN,URINE 4+ mg/dl (NEGATIVE); UROBILINOGEN,URINE 0.2 EU/dL (0.2)
[2023-01-16 04:06] LABS: ADD URINE CULTURE YES; BACTERIA,URINE Many /HPF (None Seen); SQUAMOUS EPITHELIAL CELL,UR Few /HPF (None Seen); WBC,URINE TOO NUMEROUS TO COUN /HPF (0-3)
[2023-01-16] MEDS ORDERED: CEFTRIAXONE 1GM BAG (ER ONLY) 50 ML IV ONE (04:27)
[2023-01-16] MEDS ORDERED: CEFTRIAXONE 1GM BAG (ER ONLY) 1 GM/50 ML PIGGYBACK IV ONE (04:30)
[2023-01-16] MEDS ORDERED: SULF1TAB48 PO (09:51)
[2023-01-16] MEDS ORDERED: LEVO750T46 PO (09:53)
[2023-01-16 12:07] VITALS: BP 91/51; TEMP 98.2; O2SAT 96
== END 2023-01-16 12:10 | disposition home or self-care (01) ==
LOC: ER 02:42
DX: E87.1 Hypo-osmolality and hyponatremia (principal); E87.5 Hyperkalemia; N39.0 Urinary tract infection, site not specified; N17.9 Acute kidney failure, unspecified; R10.31 Right lower quadrant pain; R06.02 Shortness of breath; I10 Essential (primary) hypertension; J40 Bronchitis, not specified as acute or chronic; Z20.822 Contact with and (suspected) exposure to COVID-19; Z98.890 Other specified postprocedural states; Z90.49 Acquired absence of other specified parts of digestive tract; Z79.899 Other long term (current) drug therapy
CPT/HCPCS: 99285; 74176; 96365; 71045; 96375; 87426; 93005; 85025; 80048; 87086; 83690; 80076; 81001; 36415; 84484; 85730; J1885; J2405; J7040; J0696; C9803

== ENCOUNTER 2023-06-27 23:07 | Inpatient (IN) | payer MEDICARE, OTHER ==
[~2023-06-27] VITALS: Ht 154.9 cm; Wt 77.6 kg
[~2023-06-27 23:07] MED LIST changes: +LEVO750T46 PO; +SULF1TAB48 PO
[2023-06-27] MEDS ORDERED: ONDANSETRON HCL/PF 4 MG/2 ML VIAL ONE (23:41)
[2023-06-27] MEDS: ONDANSETRON HCL/PF 4 MG/2 ML VIAL IVP ONE (23:42)
[2023-06-27] MEDS: IV NS 0.9% 1,000 ML BAG IV ONE (23:42)
[2023-06-27 23:51] LABS: EOSINOPHILS # (AUTO) 8.2 K/uL (0.0-0.7); HEMATOCRIT 41 % (33-45); HEMOGLOBIN 13.7 g/dL (11.5-14.8); LYMPHOCYTES # (AUTO) 3.1 K/uL (0.8-4.8); LYMPHOCYTES % (AUTO) 15.1 % (20.0-44.0); MEAN CORPUSCULAR HEMOGLOBIN 32 PG (26.0-33.0); MEAN CORPUSCULAR HGB CONC 34 g/dl (31.0-36.0); MEAN CORPUSCULAR VOLUME 94 fL (82-100); MONOCYTES # (AUTO) 0.6 K/uL (0.1-1.30); MONOCYTES % (AUTO) 3.1 % (2.0-12.0); NEUTROPHILS # (AUTO) 8.8 K/uL (1.8-8.9); NEUTROPHILS % (AUTO) 42.5 % (43.0-81.0); PLATELET COUNT (AUTO) 426 K/uL (150-450); RED BLOOD CELL COUNT(AUTO) 4.34 MIL/uL (4.0-5.2); RED CELL DISTRIBUTION WIDTH 14.2 % (11.5-15.0); WHITE BLOOD COUNT (AUTO) 20.8 K/uL (4.3-11.0)
[2023-06-27 23:53] LABS: EOSINOPHILS % (AUTO) 39.3 % (0.0-6.0)
[2023-06-28 00:06] LABS: CARBON DIOXIDE 21 mmol/L (21-32); CHLORIDE 97 mmol/L (98-107); GLUCOSE 158 mg/dL (74-106); SODIUM SERUM 135 mmol/L (136-145); UREA NITROGEN, BLOOD 11 mg/dL (7-18)
[2023-06-28 00:08] LABS: ALANINE AMINOTRANSFERASE 33 U/L (12-78); ALBUMIN 3.7 g/dL (3.4-5.0); ALKALINE PHOSPHATASE 82 U/L (46-116); ASPARTATE AMINOTRANSFERASE 24 U/L (15-37); BILIRUBIN,DIRECT 0.2 mg/dL (0.0-0.2); CALCIUM, SERUM 9.7 mg/dL (8.5-10.1); POTASSIUM 2.2 mmol/L (3.5-5.1); TOTAL PROTEIN, SERUM 7.7 g/dL (6.4-8.2)
[2023-06-28] MEDS ORDERED: POTASSIUM CL. PREMIX PERIPHER. 50 ML ONE (00:33)
[2023-06-28 00:34] LABS: APPEARANCE,URINE CLEAR (CLEAR); BILIRUBIN,URINE NEGATIVE (NEGATIVE); BLOOD, URINE NEGATIVE Ery/uL (NEGATIVE); COLOR,URINE DARK YELLOW (YELLOW); KETONES,URINE 1+ mg/dL (NEGATIVE); LEUKOCYTE ESTERASE ,URINE 3+ (NEGATIVE); NITRITE, URINE POSITIVE (NEGATIVE); PH,URINE 7.5 (5.0-8.0); PROTEIN,URINE TRACE mg/dl (NEGATIVE); UGLUCOSE NEGATIVE (NEGATIVE)
[2023-06-28] MEDS: POTASSIUM CL. PREMIX PERIPHER. 50 ML IV SCH (00:34)
[2023-06-28] MEDS ORDERED: CEFTRIAXONE 1GM BAG (ER ONLY) 50 ML IV ONE (00:48)
[2023-06-28 01:07] LABS: LYMPHOCYTES % (MANUAL) 2 % (16-48); MONOCYTES % (MANUAL) 2 % (0-11.0); NEUTROPHILS % (MANUAL) 96 (42-76); PLATELET ESTIMATE ADEQUATE
[2023-06-28] MEDS: CEFTRIAXONE 1GM BAG (ER ONLY) 1 GM/50 ML PIGGYBACK IV ONE (01:16)
[2023-06-28 01:29] LABS: ADD URINE CULTURE YES; BACTERIA,URINE 2+ /HPF (None Seen); MUCUS,URINE Few /LPF (None Seen); RBC,URINE NONE SEEN /HPF (0-2)
[2023-06-28] MEDS: ACETAMINOPHEN ES 500 MG TABLET PO ONE (02:09)
[2023-06-28] MEDS ORDERED: ACETAMINOPHEN ES 500 MG TABLET ONE ×2 (02:09→06:39)
[2023-06-28] MEDS ORDERED: MAGNESIUM HYDROXIDE 30 ML UDC PO PRN (02:30)
[2023-06-28] MEDS ORDERED: MAG HYDROX/AL HYDROX/SIMETH 30 ML UDC PO PRN (02:30)
[2023-06-28] MEDS ORDERED: Z GUARD REMEDY 4 OZ OINT TP PRN (02:30)
[2023-06-28] MEDS ORDERED: IV NS 0.9% 1,000 ML IV PRN (02:30)
[2023-06-28] MEDS ORDERED: ONDANSETRON HCL/PF 4 MG/2 ML VIAL IVP PRN (02:30)
[2023-06-28] MEDS ORDERED: TEMAZEPAM 15 MG CAPSULE PO PRN (02:30)
[2023-06-28] MEDS: ACETAMINOPHEN 325 MG TABLET PO PRN ×2 (06:43→09:12)
[2023-06-28] MEDS ORDERED: Magnesium 1GM/D5W 100ML PREMIX PIGGYBACK IV ONE (07:00)
[2023-06-28 07:30] VITALS: BP 114/45; TEMP 98.6; O2SAT 96
[2023-06-28] MEDS ORDERED: CLON0.1T PO (07:44)
[2023-06-28] MEDS ORDERED: CINA30TA6 PO (07:44)
[2023-06-28] MEDS ORDERED: LOSA100T31 PO (07:44)
[2023-06-28] MEDS ORDERED: ACET-868 PO (07:44)
[2023-06-28] MEDS ORDERED: ACET-2605 PO (07:44)
[2023-06-28] MEDS ORDERED: NITR100C11 PO (07:44)
[2023-06-28] MEDS ORDERED: MELA1TAB15 PO (07:44)
[2023-06-28] MEDS ORDERED: ONDA-97 PO (07:44)
[2023-06-28] MEDS ORDERED: LACT10SO58 PO (07:44)
[2023-06-28] MEDS ORDERED: OMEP20CA15 PO (07:44)
[2023-06-28] MEDS ORDERED: AMLO2.5T4 PO (07:44)
[2023-06-28] MEDS ORDERED: SENN-261 PO (07:44)
[2023-06-28] MEDS ORDERED: ESTR1TAB28 PO (07:44)
[2023-06-28] MEDS ORDERED: LEVO150T8 PO (07:44)
[2023-06-28] MEDS: PANTOPRAZOLE 40 MG TABLET.DR PO SCH (09:13)
[2023-06-28] MEDS: MGSO4/D5W 100 ML IV SCH (09:14)
[2023-06-28] MEDS: ENOXAPARIN SODIUM 30 MG/0.3 ML DISP.SYRIN SQ SCH (09:15)
[2023-06-28 14:13] LABS: CALCIUM, SERUM 8.6 mg/dL (8.5-10.1); CREATININE 0.8 mg/dL (0.6-1.3)
[2023-06-28 14:35] LABS: POTASSIUM 2.4 mmol/L (3.5-5.1)
[2023-06-28 16:00] VITALS: BP 127/53; TEMP 98.2; O2SAT 96
[2023-06-28] MEDS: AZITHROMYCIN 500 MG in IV D5W 250 ML IV SCH (18:32)
[2023-06-28] MEDS: POTASSIUM CHLORIDE 20 MEQ TAB.PRT.SR PO ONE (19:17)
[2023-06-28] MEDS ORDERED: CLONIDINE HCL 0.1 MG TABLET PO PRN (20:00)
[2023-06-28] MEDS ORDERED: ACETAMINOPHEN ES 500 MG TABLET PO PRN (20:00)
[2023-06-28] MEDS ORDERED: SENNOSIDES 8.6 MG TABLET PO PRN (20:00)
[2023-06-28] MEDS ORDERED: ACETAMINOPHEN 325 MG TABLET PO PRN (20:00)
[2023-06-28] MEDS ORDERED: LACTULOSE 10 G/15 ML UDC (PYXIS) PO PRN (20:00)
[2023-06-28 20:35] VITALS: BP 154/64; TEMP 98.8; O2SAT 96
[2023-06-28] MEDS: AMLODIPINE BESYLATE 2.5 MG TABLET PO SCH (20:50)
[2023-06-28] MEDS ORDERED: [UNRECOGNIZED DRUG - OTHER] PO SCH (22:00)
[2023-06-28] MEDS ORDERED: PYRIDOXINE PO SCH (22:00)
[2023-06-28] MEDS ORDERED: MELATONIN PO SCH (22:00)
[2023-06-28 22:04] VITALS: BP 154/64; TEMP 98.8; O2SAT 96
[2023-06-29] VITALS (8 sets, daily range): BP systolic 110–146; BP diastolic 43–65; TEMP 97.7–98.8; O2SAT 94–97
[2023-06-29] MEDS: CEFTRIAXONE 1 G in IV D5W 50 ML IV SCH (01:53)
[2023-06-29 07:08] LABS: BASOPHILS % (AUTO) 0.6 % (0.0-2.0); EOSINOPHILS # (AUTO) 0.4 K/uL (0.0-0.7); EOSINOPHILS % (AUTO) 6.3 % (0.0-6.0); HEMATOCRIT 36 % (33-45); HEMOGLOBIN 12.4 g/dL (11.5-14.8); LYMPHOCYTES # (AUTO) 1.5 K/uL (0.8-4.8); LYMPHOCYTES % (AUTO) 21.2 % (20.0-44.0); MEAN CORPUSCULAR HEMOGLOBIN 33 PG (26.0-33.0); MEAN CORPUSCULAR HGB CONC 35 g/dl (31.0-36.0); MEAN CORPUSCULAR VOLUME 94 fL (82-100); MONOCYTES # (AUTO) 0.5 K/uL (0.1-1.30); MONOCYTES % (AUTO) 6.6 % (2.0-12.0); NEUTROPHILS # (AUTO) 4.5 K/uL (1.8-8.9); NEUTROPHILS % (AUTO) 65.3 % (43.0-81.0); PLATELET COUNT (AUTO) 348 K/uL (150-450); RED BLOOD CELL COUNT(AUTO) 3.83 MIL/uL (4.0-5.2); RED CELL DISTRIBUTION WIDTH 14.1 % (11.5-15.0); WHITE BLOOD COUNT (AUTO) 6.9 K/uL (4.3-11.0)
[2023-06-29 07:22] LABS: CALCIUM, SERUM 8.5 mg/dL (8.5-10.1); CHLORIDE 104 mmol/L (98-107); CREATININE 0.5 mg/dL (0.6-1.3); GLUCOSE 120 mg/dL (74-106); MAGNESIUM 1.7 mg/dL (1.8-2.4); PHOSPHORUS 2.3 mg/dL (2.5-4.9); POTASSIUM 3.1 mmol/L (3.5-5.1); SODIUM SERUM 139 mmol/L (136-145); UREA NITROGEN, BLOOD 6 mg/dL (7-18)
[2023-06-29] MEDS: LEVOTHYROXINE SODIUM 75 MCG TABLET PO SCH (07:53)
[2023-06-29] MEDS: ESTRADIOL 1 MG TABLET PO SCH (08:20)
[2023-06-29] MEDS: FLUOXETINE HCL 20 MG CAPSULE PO SCH (08:20)
[2023-06-29] MEDS: busPIRone 5 MG TABLET PO SCH (08:21)
[2023-06-29] MEDS: LISINOPRIL (10MG) 10 MG TABLET PO SCH (08:21)
[2023-06-29] MEDS: CHOLECALCIFEROL 1,000 UNIT TABLET (VIT D3) PO SCH (08:21)
[2023-06-29] MEDS: POLYETHYLENE GLYCOL 3350 17 GM POWD.PACK PO SCH (08:22)
[2023-06-29] MEDS: LOSARTAN POTASSIUM 50 MG TABLET PO SCH (08:22)
[2023-06-29 08:56] LABS: CARBON DIOXIDE 22 mmol/L (21-32)
[2023-06-29] MEDS ORDERED: Medication Not On Formulary EA (Cranberry Extract (Cranberry) 450 MG) PO SCH (09:00)
[2023-06-29] MEDS ORDERED: busPIRone HCL 10 MG TABLET PO SCH (09:00)
[2023-06-29] MEDS ORDERED: Magnesium 1GM/D5W 100ML PREMIX 100 ML IV SCH (10:00)
[2023-06-29] MEDS: POTASSIUM CHLORIDE 20 MEQ TAB.PRT.SR PO ONE (10:10)
[2023-06-29] MEDS: MAGNESIUM OXIDE 400 MG TABLET PO ONE (12:11)
[2023-06-29] MEDS: K PHOS NEUTRAL 250 MG TABLET PO ONE (15:46)
[2023-06-30 04:00] VITALS: BP 122/60; TEMP 97.9; O2SAT 97
[2023-06-30 07:25] LABS: CALCIUM, SERUM 8.9 mg/dL (8.5-10.1); CARBON DIOXIDE 22 mmol/L (21-32); CHLORIDE 103 mmol/L (98-107); CREATININE 0.5 mg/dL (0.6-1.3); GLUCOSE 115 mg/dL (74-106); MAGNESIUM 1.7 mg/dL (1.8-2.4); PHOSPHORUS 2.9 mg/dL (2.5-4.9); POTASSIUM 3.5 mmol/L (3.5-5.1); SODIUM SERUM 138 mmol/L (136-145); UREA NITROGEN, BLOOD 6 mg/dL (7-18)
[2023-06-30 07:26] LABS: BASOPHILS # (AUTO) 0.1 K/uL (0.0-0.2); EOSINOPHILS # (AUTO) 0.3 K/uL (0.0-0.7); EOSINOPHILS % (AUTO) 5.1 % (0.0-6.0); HEMATOCRIT 36 % (33-45); HEMOGLOBIN 12.5 g/dL (11.5-14.8); LYMPHOCYTES # (AUTO) 1.8 K/uL (0.8-4.8); LYMPHOCYTES % (AUTO) 33.5 % (20.0-44.0); MEAN CORPUSCULAR HEMOGLOBIN 32 PG (26.0-33.0); MEAN CORPUSCULAR HGB CONC 34 g/dl (31.0-36.0); MEAN CORPUSCULAR VOLUME 94 fL (82-100); MONOCYTES # (AUTO) 0.5 K/uL (0.1-1.30); MONOCYTES % (AUTO) 9.3 % (2.0-12.0); NEUTROPHILS # (AUTO) 2.8 K/uL (1.8-8.9); NEUTROPHILS % (AUTO) 51.1 % (43.0-81.0); PLATELET COUNT (AUTO) 364 K/uL (150-450); RED BLOOD CELL COUNT(AUTO) 3.89 MIL/uL (4.0-5.2); RED CELL DISTRIBUTION WIDTH 13.8 % (11.5-15.0); WHITE BLOOD COUNT (AUTO) 5.5 K/uL (4.3-11.0)
[2023-06-30] MEDS: CINACALCET HCL 30 MG TABLET PO SCH (08:24)
[2023-06-30] MEDS: MAGNESIUM OXIDE 400 MG TABLET PO ONE (09:45)
[2023-06-30] MEDS: HYDROCODONE/APAP 5/325MG TABLET PO PRN (12:46)
[2023-06-30 20:00] VITALS: BP 103/55; TEMP 97.7; O2SAT 96
[2023-06-30 20:39] VITALS: BP 103/55; TEMP 97.7; O2SAT 96
[2023-07-01 07:03] LABS: BASOPHILS # (AUTO) 0.1 K/uL (0.0-0.2); BASOPHILS % (AUTO) 1.2 % (0.0-2.0); EOSINOPHILS # (AUTO) 0.3 K/uL (0.0-0.7); HEMATOCRIT 40 % (33-45); HEMOGLOBIN 13.5 g/dL (11.5-14.8); LYMPHOCYTES # (AUTO) 1.8 K/uL (0.8-4.8); LYMPHOCYTES % (AUTO) 32.4 % (20.0-44.0); MEAN CORPUSCULAR HEMOGLOBIN 32 PG (26.0-33.0); MEAN CORPUSCULAR HGB CONC 34 g/dl (31.0-36.0); MEAN CORPUSCULAR VOLUME 94 fL (82-100); MONOCYTES # (AUTO) 0.5 K/uL (0.1-1.30); MONOCYTES % (AUTO) 9.4 % (2.0-12.0); NEUTROPHILS # (AUTO) 2.9 K/uL (1.8-8.9); PLATELET COUNT (AUTO) 399 K/uL (150-450); RED BLOOD CELL COUNT(AUTO) 4.21 MIL/uL (4.0-5.2); RED CELL DISTRIBUTION WIDTH 13.9 % (11.5-15.0); WHITE BLOOD COUNT (AUTO) 5.6 K/uL (4.3-11.0)
[2023-07-01 07:17] LABS: BILIRUBIN,TOTAL 0.5 mg/dL (0.2-1.0); CALCIUM, SERUM 9.1 mg/dL (8.5-10.1); CREATININE 0.6 mg/dL (0.6-1.3); MAGNESIUM 1.7 mg/dL (1.8-2.4); PHOSPHORUS 3.3 mg/dL (2.5-4.9); POTASSIUM 3.3 mmol/L (3.5-5.1)
[2023-07-01 08:00] VITALS: BP 146/58; TEMP 97.7; O2SAT 100
[2023-07-01] MEDS: POTASSIUM CHLORIDE 20 MEQ POWDER PACKET PO ONE ×2 (10:23→10:43)
[2023-07-01] MEDS: MAGNESIUM OXIDE 400 MG TABLET PO ONE (10:44)
[2023-07-01 16:00] VITALS: BP 124/59; TEMP 98.1; O2SAT 96
[2023-07-01 21:02] VITALS: BP 116/55
== END 2023-07-01 21:35 | disposition home health service (06) | DRG 690 ==
LOC: ER 23:15 → TELE 06-28 05:44 → MED 06-30 14:19
PROVIDERS: ADMIT Student in an Organized Health Care Education/Training Program
DX: N39.0 Urinary tract infection, site not specified (principal); E87.1 Hypo-osmolality and hyponatremia; J40 Bronchitis, not specified as acute or chronic; B96.4 Proteus (mirabilis) (morganii) as the cause of diseases classified elsewhere; E03.9 Hypothyroidism, unspecified; E83.39 Other disorders of phosphorus metabolism; E83.42 Hypomagnesemia; E87.6 Hypokalemia; F41.9 Anxiety disorder, unspecified; I10 Essential (primary) hypertension; Z85.828 Personal history of other malignant neoplasm of skin; Z87.442 Personal history of urinary calculi; Z90.710 Acquired absence of both cervix and uterus; E83.52 Hypercalcemia; Z20.822 Contact with and (suspected) exposure to COVID-19; M54.30 Sciatica, unspecified side; N63.20 Unspecified lump in the left breast, unspecified quadrant
CPT/HCPCS: 36415; 71045-TC; 73030-TC; 80048-TC; 80053-TC; 80076-TC; 81001; 83735-TC; 84100-TC; 84484-TC; 85025-TC; 87081-TC; 87086-TC; 97112-TC; 97116-TC; 97530-TC; A4223; G0378; J0456; J0696; J1650; J2405; J3475; J3480; J7030; J7040; J7050; J7060

== ENCOUNTER 2024-05-02 16:21 | Inpatient (IN) | payer MEDICARE, OTHER ==
[~2024-05-02] VITALS: Ht 149.9 cm; Wt 77.6 kg
[~2024-05-02 16:21] MED LIST changes: +ACET-2605 PO; +ACET-868 PO; -AMLO-212 PO; +AMLO2.5T4 PO; -BEPO10DR EACHEYE; -BUME1TAB8 PO; -CARV3.122 PO; +CINA30TA6 PO; +CLON0.1T PO; -ESTR0.5T PO; +ESTR1TAB28 PO; +LACT10SO58 PO; -LEVO-104 PO; +LEVO150T8 PO; -LEVO750T46 PO; -LORA10TA7 PO; +LOSA100T31 PO; +MELA1TAB15 PO; +NITR100C11 PO; -NITR100C6 PO; +OMEP20CA15 PO; +ONDA-97 PO; -PANT40TA49 PO; -PREG-59 PO; -SULF1TAB48 PO
[2024-05-02 16:42] VITALS: O2SAT 98
[2024-05-02] MEDS ORDERED: PANTOPRAZOLE 40 MG VIAL ONE (17:07)
[2024-05-02] MEDS ORDERED: ACETAMINOPHEN ES 500 MG TABLET ONE (17:07)
[2024-05-02] MEDS ORDERED: ONDANSETRON HCL/PF 4 MG/2 ML VIAL ONE (17:07)
[2024-05-02 17:17] LABS: BASOPHILS # (AUTO) 0.1 K/uL (0.0-0.2); BASOPHILS % (AUTO) 1.4 % (0.0-2.0); EOSINOPHILS # (AUTO) 0.1 K/uL (0.0-0.7); EOSINOPHILS % (AUTO) 1.6 % (0.0-6.0); HEMATOCRIT 43 % (33-45); HEMOGLOBIN 14.6 g/dL (11.5-14.8); LYMPHOCYTES # (AUTO) 3.7 K/uL (0.8-4.8); LYMPHOCYTES % (AUTO) 40.6 % (20.0-44.0); MEAN CORPUSCULAR HEMOGLOBIN 32 PG (26.0-33.0); MEAN CORPUSCULAR HGB CONC 34 g/dl (31.0-36.0); MEAN CORPUSCULAR VOLUME 96 fL (82-100); MONOCYTES # (AUTO) 0.9 K/uL (0.1-1.30); MONOCYTES % (AUTO) 10.3 % (2.0-12.0); NEUTROPHILS # (AUTO) 4.2 K/uL (1.8-8.9); NEUTROPHILS % (AUTO) 46.1 % (43.0-81.0); PLATELET COUNT (AUTO) 356 K/uL (150-450); RED BLOOD CELL COUNT(AUTO) 4.54 MIL/uL (4.0-5.2); WHITE BLOOD COUNT (AUTO) 9.1 K/uL (4.3-11.0)
[2024-05-02] MEDS: ACETAMINOPHEN ES 500 MG TABLET PO ONE (17:20)
[2024-05-02] MEDS: ONDANSETRON HCL/PF 4 MG/2 ML VIAL IVP ONE (17:20)
[2024-05-02] MEDS: PANTOPRAZOLE 40 MG VIAL IV ONE (17:20)
[2024-05-02] MEDS: IV NS 0.9% 500 ML BAG IV ONE (17:20)
[2024-05-02 17:24] LABS: CALCIUM, SERUM 10.2 mg/dL (8.5-10.1); CARBON DIOXIDE 24 mmol/L (21-32); CHLORIDE 104 mmol/L (98-107); CREATININE 0.8 mg/dL (0.6-1.3); GLUCOSE 94 mg/dL (74-106); POTASSIUM 3.9 mmol/L (3.5-5.1); SODIUM SERUM 138 mmol/L (136-145); UREA NITROGEN, BLOOD 18 mg/dL (7-18)
[2024-05-02 17:36] LABS: ALANINE AMINOTRANSFERASE 25 U/L (12-78); ALBUMIN 3.5 g/dL (3.4-5.0); ALKALINE PHOSPHATASE 87 U/L (46-116); ASPARTATE AMINOTRANSFERASE 21 U/L (15-37); BILIRUBIN,DIRECT 0.1 mg/dL (0.0-0.2); BILIRUBIN,TOTAL 0.6 mg/dL (0.2-1.0); LIPASE 41 U/L (16-77); TOTAL PROTEIN, SERUM 7.2 g/dL (6.4-8.2)
[2024-05-02] MEDS ORDERED: DOCU100C36 PO (17:49)
[2024-05-02 18:19] LABS: APPEARANCE,URINE Slightly Cloudy (CLEAR); BILIRUBIN,URINE Negative (NEGATIVE); BLOOD, URINE Negative Ery/uL (NEGATIVE); COLOR,URINE YELLOW (YELLOW); KETONES,URINE Negative (NEGATIVE); LEUKOCYTE ESTERASE ,URINE Large (NEGATIVE); NITRITE, URINE Positive (NEGATIVE); PH,URINE 8.5 (5.0-8.0); PROTEIN,URINE Negative (NEGATIVE); UGLUCOSE Negative (NEGATIVE); UROBILINOGEN,URINE 0.2 EU/dL (0.2)
[2024-05-02 19:13] LABS: ADD URINE CULTURE YES; BACTERIA,URINE 4+ /HPF (None Seen); RBC,URINE 0-2 /HPF (0-2); SQUAMOUS EPITHELIAL CELL,UR 0-2 /HPF (None Seen); WBC,URINE 51-80 /HPF (0-3)
[2024-05-02] MEDS ORDERED: ONDANSETRON HCL/PF 4 MG/2 ML VIAL IVP PRN ×2 (19:30→20:00)
[2024-05-02] MEDS ORDERED: Z GUARD REMEDY 4 OZ OINT TP PRN (19:30)
[2024-05-02 20:00] VITALS: BP 124/56; TEMP 97.7; O2SAT 96
[2024-05-02] MEDS ORDERED: CLONIDINE HCL 0.1 MG TABLET PO PRN (20:00)
[2024-05-02] MEDS: CEFTRIAXONE 1 G in IV D5W 50 ML IV SCH (20:00)
[2024-05-03] MEDS: ACETAMINOPHEN 325 MG TABLET PO PRN (04:28)
[2024-05-03 06:39] LABS: CALCIUM, SERUM 9.8 mg/dL (8.5-10.1); CARBON DIOXIDE 27 mmol/L (21-32); CHLORIDE 105 mmol/L (98-107); CREATININE 0.7 mg/dL (0.6-1.3); GLUCOSE 110 mg/dL (74-106); MAGNESIUM 1.9 mg/dL (1.8-2.4); PHOSPHORUS 3.4 mg/dL (2.5-4.9); POTASSIUM 4.2 mmol/L (3.5-5.1); SODIUM SERUM 139 mmol/L (136-145); UREA NITROGEN, BLOOD 17 mg/dL (7-18)
[2024-05-03 06:45] LABS: BASOPHILS # (AUTO) 0.1 K/uL (0.0-0.2); BASOPHILS % (AUTO) 1.1 % (0.0-2.0); EOSINOPHILS # (AUTO) 0.2 K/uL (0.0-0.7); EOSINOPHILS % (AUTO) 2.2 % (0.0-6.0); HEMATOCRIT 40 % (33-45); HEMOGLOBIN 13.3 g/dL (11.5-14.8); LYMPHOCYTES # (AUTO) 2.2 K/uL (0.8-4.8); LYMPHOCYTES % (AUTO) 29.3 % (20.0-44.0); MEAN CORPUSCULAR HEMOGLOBIN 32 PG (26.0-33.0); MEAN CORPUSCULAR HGB CONC 33 g/dl (31.0-36.0); MEAN CORPUSCULAR VOLUME 95 fL (82-100); MONOCYTES # (AUTO) 0.7 K/uL (0.1-1.30); MONOCYTES % (AUTO) 9.2 % (2.0-12.0); NEUTROPHILS # (AUTO) 4.4 K/uL (1.8-8.9); NEUTROPHILS % (AUTO) 58.2 % (43.0-81.0); PLATELET COUNT (AUTO) 332 K/uL (150-450); RED CELL DISTRIBUTION WIDTH 12.8 % (11.5-15.0); WHITE BLOOD COUNT (AUTO) 7.6 K/uL (4.3-11.0)
[2024-05-03 08:00] VITALS: BP 127/63; TEMP 98.2; O2SAT 99
[2024-05-03] MEDS: PANTOPRAZOLE 40 MG TABLET.DR PO SCH (08:41)
[2024-05-03] MEDS: LEVOTHYROXINE SODIUM 50 MCG TABLET PO SCH (08:41)
[2024-05-03] MEDS: FLUOXETINE HCL 20 MG CAPSULE PO SCH (08:42)
[2024-05-03] MEDS: DOCUSATE SODIUM 100 MG CAPSULE PO SCH (08:42)
[2024-05-03] MEDS: busPIRone 5 MG TABLET PO SCH (08:42)
[2024-05-03] MEDS: CHOLECALCIFEROL 1,000 UNIT TABLET (VIT D3) PO SCH (08:42)
[2024-05-03] MEDS: POLYETHYLENE GLYCOL 3350 17 GM POWD.PACK PO SCH (08:42)
[2024-05-03] MEDS ORDERED: busPIRone HCL 10 MG TABLET PO SCH (09:00)
[2024-05-03 16:00] VITALS: BP 139/49; TEMP 98.8; O2SAT 99
[2024-05-03 21:19] VITALS: BP_SYST 137; TEMP 97.9; O2SAT 96
[2024-05-04 06:40] LABS: BASOPHILS # (AUTO) 0.2 K/uL (0.0-0.2); BASOPHILS % (AUTO) 2.8 % (0.0-2.0); EOSINOPHILS # (AUTO) 0.2 K/uL (0.0-0.7); EOSINOPHILS % (AUTO) 4.2 % (0.0-6.0); HEMATOCRIT 41 % (33-45); HEMOGLOBIN 13.5 g/dL (11.5-14.8); LYMPHOCYTES # (AUTO) 1.7 K/uL (0.8-4.8); LYMPHOCYTES % (AUTO) 28.7 % (20.0-44.0); MEAN CORPUSCULAR HEMOGLOBIN 32 PG (26.0-33.0); MEAN CORPUSCULAR HGB CONC 33 g/dl (31.0-36.0); MEAN CORPUSCULAR VOLUME 96 fL (82-100); MONOCYTES # (AUTO) 0.7 K/uL (0.1-1.30); MONOCYTES % (AUTO) 11.2 % (2.0-12.0); NEUTROPHILS # (AUTO) 3.2 K/uL (1.8-8.9); NEUTROPHILS % (AUTO) 53.1 % (43.0-81.0); PLATELET COUNT (AUTO) 319 K/uL (150-450); RED BLOOD CELL COUNT(AUTO) 4.27 MIL/uL (4.0-5.2); RED CELL DISTRIBUTION WIDTH 12.8 % (11.5-15.0)
[2024-05-04 06:46] LABS: CALCIUM, SERUM 10.1 mg/dL (8.5-10.1); CARBON DIOXIDE 24 mmol/L (21-32); CHLORIDE 108 mmol/L (98-107); CREATININE 0.7 mg/dL (0.6-1.3); GLUCOSE 104 mg/dL (74-106); POTASSIUM 4.1 mmol/L (3.5-5.1); SODIUM SERUM 143 mmol/L (136-145); UREA NITROGEN, BLOOD 17 mg/dL (7-18)
[2024-05-04 07:00] VITALS: BP 141/68; TEMP 97.9; O2SAT 100
[2024-05-04] MEDS: CINACALCET HCL 30 MG TABLET PO SCH (09:38)
[2024-05-04] MEDS: MAG HYDROX/AL HYDROX/SIMETH 30 ML UDC PO PRN (13:46)
[2024-05-04 16:00] VITALS: BP 113/39; O2SAT 98
[2024-05-04] MEDS: ONDANSETRON HCL/PF 4 MG/2 ML VIAL IV PRN (16:01)
[2024-05-04] MEDS: MAGNESIUM HYDROXIDE 30 ML UDC PO PRN (17:07)
[2024-05-04 20:00] VITALS: BP 123/63; TEMP 98.6; O2SAT 95
[2024-05-05] MEDS: ENOXAPARIN SODIUM 40 MG/0.4 ML DISP.SYRIN SQ SCH (03:00)
[2024-05-05 07:00] VITALS: BP 119/54; TEMP 97.7; O2SAT 97
[2024-05-05 08:02] LABS: BASOPHILS # (AUTO) 0.1 K/uL (0.0-0.2); EOSINOPHILS # (AUTO) 0.2 K/uL (0.0-0.7); EOSINOPHILS % (AUTO) 2.7 % (0.0-6.0); HEMATOCRIT 42 % (33-45); HEMOGLOBIN 13.9 g/dL (11.5-14.8); LYMPHOCYTES # (AUTO) 2.3 K/uL (0.8-4.8); LYMPHOCYTES % (AUTO) 32.9 % (20.0-44.0); MEAN CORPUSCULAR HEMOGLOBIN 32 PG (26.0-33.0); MEAN CORPUSCULAR HGB CONC 33 g/dl (31.0-36.0); MEAN CORPUSCULAR VOLUME 96 fL (82-100); MONOCYTES # (AUTO) 0.7 K/uL (0.1-1.30); MONOCYTES % (AUTO) 10.1 % (2.0-12.0); NEUTROPHILS # (AUTO) 3.8 K/uL (1.8-8.9); NEUTROPHILS % (AUTO) 53.3 % (43.0-81.0); PLATELET COUNT (AUTO) 323 K/uL (150-450); RED BLOOD CELL COUNT(AUTO) 4.37 MIL/uL (4.0-5.2); WHITE BLOOD COUNT (AUTO) 7.1 K/uL (4.3-11.0)
[2024-05-05 08:27] LABS: ALANINE AMINOTRANSFERASE 21 U/L (12-78); ALBUMIN 3.2 g/dL (3.4-5.0); ALKALINE PHOSPHATASE 76 U/L (46-116); ASPARTATE AMINOTRANSFERASE 15 U/L (15-37); BILIRUBIN,TOTAL 0.5 mg/dL (0.2-1.0); CALCIUM, SERUM 9.4 mg/dL (8.5-10.1); CARBON DIOXIDE 27 mmol/L (21-32); CHLORIDE 105 mmol/L (98-107); CREATININE 0.6 mg/dL (0.6-1.3); GLUCOSE 110 mg/dL (74-106); MAGNESIUM 2.4 mg/dL (1.8-2.4); SODIUM SERUM 140 mmol/L (136-145); TOTAL PROTEIN, SERUM 6.9 g/dL (6.4-8.2); UREA NITROGEN, BLOOD 18 mg/dL (7-18)
[2024-05-05] MEDS: LACTULOSE 10 G/15 ML UDC (PYXIS) PO PRN (10:22)
[2024-05-05] MEDS: SENNOSIDES 8.6 MG TABLET PO PRN (10:22)
[2024-05-05] MEDS ORDERED: CRAN400C PO (13:44)
[2024-05-05 16:00] VITALS: BP 124/45; TEMP 98.4; O2SAT 97
== END 2024-05-05 13:40 | DRG 689 ==
LOC: ER 16:28 → MED 17:57
PROVIDERS: ATTEND Student in an Organized Health Care Education/Training Program
DX: N39.0 Urinary tract infection, site not specified (principal); G93.41 Metabolic encephalopathy; K50.90 Crohn's disease, unspecified, without complications; K21.9 Gastro-esophageal reflux disease without esophagitis; J44.9 Chronic obstructive pulmonary disease, unspecified; E03.9 Hypothyroidism, unspecified; E11.9 Type 2 diabetes mellitus without complications; E78.5 Hyperlipidemia, unspecified; F32.A Depression, unspecified; F41.9 Anxiety disorder, unspecified; I10 Essential (primary) hypertension; Z87.440 Personal history of urinary (tract) infections; K80.20 Calculus of gallbladder without cholecystitis without obstruction; N20.0 Calculus of kidney; B96.89 Other specified bacterial agents as the cause of diseases classified elsewhere
CPT/HCPCS: 36415; 70450-TC; 71045-TC; 80048-TC; 80053-TC; 80076-TC; 81001; 83690-TC; 83735-TC; 84100-TC; 84484-TC; 85025-TC; 87086-TC; 97110-TC; 97116-TC; 97530-TC; A4223; G0378; J0696; J1650; J2405; J2470; J7040; J7050; J7060

== ENCOUNTER 2025-02-28 18:36 | Emergency (ER) | payer MEDICARE, OTHER ==
[~2025-02-28] VITALS: Ht 175.3 cm; Wt 81.2 kg
[~2025-02-28 18:36] MED LIST changes: -ACET-2605 PO; -AMLO2.5T4 PO; +CRAN400C PO; -CRAN425C6 PO; +DOCU100C36 PO; -ESTR1TAB28 PO; -LISI10TA29 PO; -LOSA100T31 PO; -MELA1TAB15 PO; -NITR100C11 PO
[2025-02-28 18:45] VITALS: TEMP 98.2
[2025-02-28] MEDS ORDERED: PROM12.513 PO (19:07)
[2025-02-28] MEDS ORDERED: FLUO10TA PO (19:07)
[2025-02-28] MEDS ORDERED: BENZ5.1G MM (19:07)
[2025-02-28] MEDS ORDERED: LEVO125T8 PO (19:07)
[2025-02-28] MEDS ORDERED: FAMO20TA8 PO (19:07)
[2025-02-28] MEDS ORDERED: RHUB4TAB PO (19:07)
[2025-02-28] MEDS: IV NS 0.9% 1,000 ML BAG IV ONE (19:15)
[2025-02-28 19:23] LABS: PLATELET COUNT (AUTO) 354 K/uL (150-450); RED BLOOD CELL COUNT(AUTO) 4.30 MIL/uL (4.0-5.2); RED CELL DISTRIBUTION WIDTH 13.3 % (11.5-15.0); WHITE BLOOD COUNT (AUTO) 8.3 K/uL (4.3-11.0)
[2025-02-28] MEDS ORDERED: ONDANSETRON HCL/PF 4 MG/2 ML VIAL ONE (19:25)
[2025-02-28 19:33] LABS: CALCIUM, SERUM 9.0 mg/dL (8.5-10.1); CREATININE 0.7 mg/dL (0.6-1.3); SODIUM SERUM 135 mmol/L (136-145); UREA NITROGEN, BLOOD 16 mg/dL (7-18)
[2025-02-28 19:38] LABS: ASPARTATE AMINOTRANSFERASE 14 U/L (15-37); TOTAL PROTEIN, SERUM 7.0 g/dL (6.4-8.2)
[2025-02-28 19:40] LABS: LACTIC ACID 2.6 mmol/L (0.4-2.0)
[2025-02-28] MEDS ORDERED: IOHEXOL-300 100 ML VIAL IV ONE (19:43)
[2025-02-28] MEDS ORDERED: IV NS 0.9% 250 ML IV ONE (19:43)
[2025-02-28] MEDS ORDERED: CT SWABBABLE VALVE TRANS SET 1 EA INFUS.SET MC ONE (19:43)
[2025-02-28] MEDS: ONDANSETRON HCL/PF 4 MG/2 ML VIAL IVP ONE (19:53)
[2025-02-28] MEDS ORDERED: ONDA4TAB11 PO (21:35)
[2025-02-28 23:11] VITALS: BP 130/75; O2SAT 97
== END 2025-02-28 23:11 ==
LOC: ER 18:42
DX: R11.2 Nausea with vomiting, unspecified (principal); R53.1 Weakness; E11.9 Type 2 diabetes mellitus without complications; E78.5 Hyperlipidemia, unspecified; F41.9 Anxiety disorder, unspecified; I10 Essential (primary) hypertension; K21.9 Gastro-esophageal reflux disease without esophagitis; Z79.899 Other long term (current) drug therapy; Z90.710 Acquired absence of both cervix and uterus; Z98.49 Cataract extraction status, unspecified eye; Z87.09 Personal history of other diseases of the respiratory system; Z87.39 Personal history of other diseases of the musculoskeletal system and connective tissue
CPT/HCPCS: 99285; 74177; 96374; 71045; 96361; 85025; 80048; 83605 ×2; 83690; 80076; 36415; J2405; J7030; J7050; Q9967

== ENCOUNTER 2025-03-01 15:19 | Inpatient (IN) | payer MEDICARE, OTHER ==
[~2025-03-01] VITALS: Ht 149.9 cm; Wt 86.2 kg
[~2025-03-01 15:19] MED LIST changes: +BENZ5.1G MM; -CRAN400C PO; +FAMO20TA8 PO; +FLUO10TA PO; -FLUO40CA49 PO; +LEVO125T8 PO; -LEVO150T8 PO; -OMEP20CA15 PO; +ONDA4TAB11 PO; +PROM12.513 PO; +RHUB4TAB PO
[2025-03-01 17:07] LABS: PLATELET COUNT (AUTO) 317 K/uL (150-450); RED BLOOD CELL COUNT(AUTO) 4.22 MIL/uL (4.0-5.2); RED CELL DISTRIBUTION WIDTH 13.7 % (11.5-15.0); WHITE BLOOD COUNT (AUTO) 8.3 K/uL (4.3-11.0)
[2025-03-01 17:17] LABS: CALCIUM, SERUM 9.3 mg/dL (8.5-10.1); CREATININE 0.8 mg/dL (0.6-1.3); SODIUM SERUM 140 mmol/L (136-145); UREA NITROGEN, BLOOD 16 mg/dL (7-18)
[2025-03-01 17:28] LABS: ASPARTATE AMINOTRANSFERASE 15 U/L (15-37); TOTAL PROTEIN, SERUM 7.0 g/dL (6.4-8.2)
[2025-03-01] MEDS ORDERED: Z GUARD REMEDY 4 OZ OINT TP PRN (21:30)
[2025-03-01] MEDS ORDERED: MAGNESIUM HYDROXIDE 30 ML UDC PO PRN (21:30)
[2025-03-01] MEDS ORDERED: MAG HYDROX/AL HYDROX/SIMETH 30 ML UDC PO PRN (21:30)
[2025-03-01] MEDS ORDERED: ONDANSETRON HCL/PF 4 MG/2 ML VIAL IVP PRN (21:30)
[2025-03-01] MEDS ORDERED: DEXTROSE 50%-WATER 50 ML DISP.SYRIN IV PRN (21:30)
[2025-03-01] MEDS ORDERED: BENZOCAINE DENTAL GEL 7.5% 9.9 GM TUBE MM PRN (22:00)
[2025-03-01] MEDS ORDERED: LACTULOSE 10 G/15 ML UDC (PYXIS) PO PRN (22:00)
[2025-03-01] MEDS: BLOOD SUGAR DIAGNOSTIC 1 EACH STRIP IN SCH (22:03)
[2025-03-01 23:15] VITALS: BP 155/89
[2025-03-02 04:00] VITALS: BP 168/65; TEMP 98.6; O2SAT 100
[2025-03-02] MEDS: CLONIDINE HCL 0.1 MG TABLET PO PRN (05:21)
[2025-03-02 06:20] LABS: PLATELET COUNT (AUTO) 319 K/uL (150-450); RED BLOOD CELL COUNT(AUTO) 4.33 MIL/uL (4.0-5.2); RED CELL DISTRIBUTION WIDTH 13.3 % (11.5-15.0); WHITE BLOOD COUNT (AUTO) 6.3 K/uL (4.3-11.0)
[2025-03-02 06:22] LABS: CALCIUM, SERUM 8.6 mg/dL (8.5-10.1); CREATININE 0.8 mg/dL (0.6-1.3); PHOSPHORUS 3.9 mg/dL (2.5-4.9); SODIUM SERUM 145.0 mmol/L (136-145); UREA NITROGEN, BLOOD 16.0 mg/dL (7-18)
[2025-03-02] MEDS: LEVOTHYROXINE SODIUM 125 MCG TABLET PO SCH (06:25)
[2025-03-02] MEDS: INSULIN REGULAR, HUMAN 100 UNIT/ML 3 ML VIAL SQ PRN (06:35)
[2025-03-02 08:00] VITALS: BP 124/62; TEMP 97.5; O2SAT 99
[2025-03-02] MEDS: DOCUSATE SODIUM 100 MG CAPSULE PO SCH (08:06)
[2025-03-02] MEDS: POLYETHYLENE GLYCOL 3350 17 GM POWD.PACK PO SCH (08:06)
[2025-03-02] MEDS: CHOLECALCIFEROL 1,000 UNIT TABLET (VIT D3) PO SCH (08:06)
[2025-03-02] MEDS: PANTOPRAZOLE 40 MG TABLET.DR PO SCH (08:06)
[2025-03-02] MEDS: ENOXAPARIN SODIUM 40 MG/0.4 ML DISP.SYRIN SQ SCH (08:07)
[2025-03-02] MEDS ORDERED: [UNRECOGNIZED DRUG - OTHER] PO SCH (09:00)
[2025-03-02 16:00] VITALS: BP 163/65; TEMP 97.7; O2SAT 99
[2025-03-02 18:35] VITALS: BP 120/89
[2025-03-02 20:00] VITALS: BP 123/65; TEMP 98.1; O2SAT 99
[2025-03-03 04:00] VITALS: BP 123/76; TEMP 98.2; O2SAT 99
[2025-03-03 06:10] LABS: PLATELET COUNT (AUTO) 331 K/uL (150-450); RED BLOOD CELL COUNT(AUTO) 4.45 MIL/uL (4.0-5.2); RED CELL DISTRIBUTION WIDTH 13.1 % (11.5-15.0); WHITE BLOOD COUNT (AUTO) 5.6 K/uL (4.3-11.0)
[2025-03-03 06:18] LABS: CALCIUM, SERUM 9.3 mg/dL (8.5-10.1); CREATININE 0.7 mg/dL (0.6-1.3); SODIUM SERUM 142.0 mmol/L (136-145); UREA NITROGEN, BLOOD 18.0 mg/dL (7-18)
[2025-03-03 08:00] VITALS: BP 134/61; TEMP 98.3; O2SAT 98
[2025-03-03] MEDS: CINACALCET HCL 30 MG TABLET PO SCH (09:17)
[2025-03-03] MEDS: ACETAMINOPHEN 325 MG TABLET PO PRN (13:56)
[2025-03-03 16:00] VITALS: BP 132/60; TEMP 97.5; O2SAT 98
[2025-03-03 18:17] LABS: APPEARANCE,URINE SLIGHTLY CLOUDY (CLEAR); BLOOD, URINE TRACE-INTA Ery/uL (NEGATIVE); LEUKOCYTE ESTERASE ,URINE 3+ (NEGATIVE); NITRITE, URINE NEGATIVE (NEGATIVE); UGLUCOSE NEGATIVE (NEGATIVE)
[2025-03-03 18:32] LABS: ADD URINE CULTURE YES
[2025-03-03 18:33] LABS: SQUAMOUS EPITHELIAL CELL,UR Few /HPF (None Seen)
[2025-03-03 20:00] VITALS: BP 120/51; TEMP 98.4; O2SAT 99
[2025-03-04 04:00] VITALS: BP 142/63; TEMP 97.5; O2SAT 97
[2025-03-04 06:26] LABS: PLATELET COUNT (AUTO) 324 K/uL (150-450); RED BLOOD CELL COUNT(AUTO) 4.41 MIL/uL (4.0-5.2); RED CELL DISTRIBUTION WIDTH 13.4 % (11.5-15.0); WHITE BLOOD COUNT (AUTO) 6.4 K/uL (4.3-11.0)
[2025-03-04 06:34] LABS: CALCIUM, SERUM 9.6 mg/dL (8.5-10.1); CREATININE 0.8 mg/dL (0.6-1.3); SODIUM SERUM 138.0 mmol/L (136-145); UREA NITROGEN, BLOOD 26.0 mg/dL (7-18)
[2025-03-04 08:00] VITALS: BP 171/93; TEMP 98; O2SAT 97
[2025-03-04] MEDS ORDERED: NITR100C6 PO (08:55)
[2025-03-04 14:46] VITALS: TEMP 98
[2025-03-04] MEDS: PHENYLEPHRINE/SHK LV/MO/PET,WH 30 GM TUBE RC PRN (15:46)
== END 2025-03-04 16:10 | DRG 690 ==
LOC: ER 15:29 → MEDSG1 19:45
PROVIDERS: ADMIT Registered Nurse Psychiatric/Mental Health; ATTEND Internal Medicine
DX: N39.0 Urinary tract infection, site not specified (principal); Z16.12 Extended spectrum beta lactamase (ESBL) resistance; B96.20 Unspecified Escherichia coli [E. coli] as the cause of diseases classified elsewhere; K21.9 Gastro-esophageal reflux disease without esophagitis; F41.9 Anxiety disorder, unspecified; F32.A Depression, unspecified; E03.9 Hypothyroidism, unspecified; E21.3 Hyperparathyroidism, unspecified; E66.9 Obesity, unspecified; E78.5 Hyperlipidemia, unspecified; I10 Essential (primary) hypertension; J44.9 Chronic obstructive pulmonary disease, unspecified; Z87.891 Personal history of nicotine dependence; R53.1 Weakness; E11.9 Type 2 diabetes mellitus without complications; Z90.710 Acquired absence of both cervix and uterus; R10.9 Unspecified abdominal pain; Z68.38 Body mass index [BMI] 38.0-38.9, adult
CPT/HCPCS: 36415; 71045-TC; 80048-TC; 80076-TC; 81001; 82962-TC; 83605-TC; 83690-TC; 83735-TC; 84100-TC; 84484-TC; 85025-TC; 87081-TC; 87086-TC; 87186-TC; G0378; J1650; J1815